=== PATIENT | male | born 2000 | race Two or more races ===

== ENCOUNTER 2021-12-29 20:45 | Emergency (ER) | payer SELFPAY ==
[2021-12-29] MEDS ORDERED: Sulfamethoxazole/Trimethoprim 800-160 MG Tab PO ONE (23:21)
== END 2021-12-29 23:45 | disposition home or self-care (01) ==
LOC: EDBD → JD.ED 20:45
DX: S80.11XA Contusion of right lower leg, initial encounter (principal); F17.210 Nicotine dependence, cigarettes, uncomplicated; Z79.899 Other long term (current) drug therapy
CPT/HCPCS: 99283; A9270

== ENCOUNTER → 2022-01-04 | Day surgery (SDC) | payer SELFPAY | LOC: JD.SDS 06:00 | PROVIDERS: ATTEND Surgery | DX: S81.801A Unspecified open wound, right lower leg, initial encounter (principal); F17.210 Nicotine dependence, cigarettes, uncomplicated; Z79.899 Other long term (current) drug therapy ==